=== PATIENT | female | born 1985 | race Caucasian/White ===

== ENCOUNTER 2016-11-14 00:05 | Inpatient (IN) | payer OTHER ==
[2016-11-14] MEDS ORDERED: OBEPIDURAL* 250 ML ONE (01:54)
[2016-11-14 01:59] LABS: Hematocrit 35 % (35-47); Hemoglobin 11.2 g/dl (12.0-16.0); Mean Corpuscular HGB Conc 32 g/dl (31-36); Mean Corpuscular Hemoglobin 25 pg (27-31); Mean Corpuscular Volume 78 fL (80-97); Mean Platelet Volume 10 um3 (7.4-10.4); Red Blood Count 4.55 10^6/ul (4.0-5.4); Red Cell Distribution Width 15 % (10.5-15)
[2016-11-14 02:02] LABS: Add Diff/Slide Review? Slide Review Added; Comments Flag Yes
[2016-11-14] MEDS ORDERED: Oxytocin in LR* 20 UNITS/1,000 ML BAG IVPB ONE (04:08)
[2016-11-14] MEDS ORDERED: Oxytocin in LR* 20 UNITS/1,000 ML BAG IVPB SCH ×2 (05:00→08:23)
[2016-11-14] MEDS ORDERED: EPHEDrine (Pressors)* 50 MG/ML VIAL IV PUSH PRN ×2 (07:26)
[2016-11-14] MEDS ORDERED: Phenylephrine IV* 40 MCG/ML 10 ML SYRINGE IV PUSH PRN ×2 (07:26)
[2016-11-14] MEDS ORDERED: Famotidine TAB* 20 MG PO PRN (07:26)
[2016-11-14] MEDS ORDERED: Sodium Citrate/Citric Acid* 15 ML UDC PO PRN (07:26)
[2016-11-14] MEDS ORDERED: OBEPIDURAL* 250 ML EPIDURAL SCH (08:00)
[2016-11-14] MEDS ORDERED: oxyCODONE/Acetamin 5/325 MG* TAB PO PRN (08:21)
[2016-11-14] MEDS ORDERED: Acetaminophen TAB* 325 MG PO PRN (08:21)
[2016-11-14] MEDS ORDERED: Glycerin ADULT SUPP PR PRN (08:21)
[2016-11-14] MEDS ORDERED: Dibucaine 1% 28.35 GM TUBE PR PRN (08:21)
[2016-11-14] MEDS: Docusate CAP* 100 MG PO SCH ×3 (10:03→20:16)
[2016-11-14] MEDS: Ibuprofen TAB* 600 MG PO PRN ×3 (10:03→22:58)
[2016-11-14] MEDS: Witch Hazel PAD* JAR TOPICAL PRN (10:08)
[2016-11-15] MEDS: Ibuprofen TAB* 600 MG PO PRN ×3 (06:21→20:25)
[2016-11-15 06:43] LABS: Hematocrit 28 % (35-47); Hemoglobin 9.2 g/dl (12.0-16.0); Mean Corpuscular HGB Conc 33 g/dl (31-36); Mean Corpuscular Hemoglobin 25 pg (27-31); Mean Corpuscular Volume 78 fL (80-97); Mean Platelet Volume 10 um3 (7.4-10.4); Red Blood Count 3.63 10^6/ul (4.0-5.4); Red Cell Distribution Width 15 % (10.5-15); White Blood Count 10.7 10^3/ul (3.5-10.8)
[2016-11-15] MEDS: Ferrous Gluconate TAB* 324 MG TAB PO SCH ×2 (08:35→20:25)
[2016-11-15] MEDS: Docusate CAP* 100 MG PO SCH ×3 (08:35→20:25)
[2016-11-16] MEDS: Ibuprofen TAB* 600 MG PO PRN ×2 (03:50→09:51)
[2016-11-16 08:13] VITALS: BP 114/74
[2016-11-16] MEDS ORDERED: Measles, Mumps,Rubella VACC* 0.5 ML/VIAL SUBCUT ONE (09:00)
[2016-11-16] MEDS: Docusate CAP* 100 MG PO SCH (09:51)
[2016-11-16] MEDS: Ferrous Gluconate TAB* 324 MG TAB PO SCH (09:51)
[2016-11-16] MEDS: Witch Hazel PAD* JAR TOPICAL PRN (11:48)
== END 2016-11-16 12:57 | disposition home or self-care (01) | DRG 775 ==
LOC: MCHOBOUT 00:05 → MCHOB 00:39
PROVIDERS: ADMIT Midwife; ATTEND Midwife
PROC: 10E0XZZ Delivery of Products of Conception, External Approach (ICD-10-PCS; principal; 2016-11-14)
PROC: 0KQM0ZZ Repair Perineum Muscle, Open Approach (ICD-10-PCS; 2016-11-14)
DX: O48.0 Post-term pregnancy (principal); D64.9 Anemia, unspecified; O70.1 Second degree perineal laceration during delivery; O77.0 Labor and delivery complicated by meconium in amniotic fluid; O90.81 Anemia of the puerperium; Z3A.40 40 weeks gestation of pregnancy; Z37.0 Single live birth
CPT/HCPCS: 36415; 85025; 85027; 86850; 86900; 86901; 90707; A9270-GY

== ENCOUNTER 2018-06-25 11:17 | Inpatient (IN) | payer OTHER ==
[2018-06-25] MEDS ORDERED: Oxytocin in LR* 20 UNITS/1,000 ML BAG IVPB ONE (11:41)
--- NOTE | 2018-06-25 11:43 | HP ---
General Information - Reason for Visit postdate for induction - General Information Maternal Age: 32 Grav: 1 Para: 0 SAB: 0 IEA: 0 Estimated Due Date: 06/17/18 Determined By: LMP Gestational Age in Weeks/Days: 41w 1d Maternal Blood Type and Rh: O Positive - Results this Serology/RPR Result: Non-Reactive Rubella Result: Immune HBsAg Result: Negative HIV Result: Negative GBS Culture Result: Negative Past Medical History Delivery History: Hx Uncomplicated Vaginal Delivery Pertinent Past Medical History: Non-Contributory Past Surgical History Comment: Cone biopsy 07/2006 Pertinent Family History: See Records - Antepartal Records Antepartal Records: Reviewed, Uncomplicated Review of Systems Constitutional: Comfortable CV Complaint: No Respiratory: Shortness of Breath: No Gastrointestinal: No Nausea/Vomiting, Normal Bowel Movement Genitourinary: No Leaking Fluid Musculoskeletal: No Complaint Neurological: Headache Movement: Normal Exam Allergies/Adverse Reactions: Allergies No Known Allergies Allergy (Verified 11/14/16 01:13) - Measurements Height: 5 ft 4 in Weight: 159 lb Weight in lbs: 159.452006 Body Mass Index (BMI): 27.3 Pre- Weight: 128 lb Weight Gained This : 31 lbs and 0 ozs - Exam Breast: - - soft, no masses Extremities: No Edema Heart: Normal Rhythm/Heart Sounds HEENT: No Significant Findings Lungs: Clear Bilaterally Reflexes: DTR 2+ Thyroid: No Thyromegaly - Ultrasound/Biophysical Profile Ultrasound Status: Not Done Targeted Exam Findings Estimated Weight: 7.5 lbs Cervical Exam: 1cm Effacement: 70% Station: -2 Presenting Part: Vertex Membrane Status: Intact EFM Findings - External Monitor Findings Baseline Heart Rate: 130 External Monitor Findings: Accelerations Present, No Pattern of Variable or Late Decelerations, Variability Moderate, Baseline Stable External Monitor Findings Comment: category 1 Contractions: Irregular Assessment/Plan - Assessment at 41w 1 day for induction - Plan Plan: Admit - Anticipate Vaginal Delivery - Date/Time of Admission Date of Admission: 06/25/18 Time of Admission: 11:30
[2018-06-25] MEDS ORDERED: Oxytocin in LR* 20 UNITS/1,000 ML BAG IVPB SCH (12:00)
[2018-06-25 12:05] LABS: ABS Basophils 0 10^3/ul (0-0.2); ABS Eosinophils 0.1 10^3/ul (0-0.6); ABS Lymphocytes 1.4 10^3/ul (1.0-4.8); ABS Monocytes 0.5 10^3/ul (0-0.8); ABS Neutrophils 5.1 10^3/ul (1.5-7.7); ABS Nucleated RBC 0 10^3/ul; Eosinophil % 1.1 % (0-6); Hematocrit 34 % (35-47); Hemoglobin 11.1 g/dl (12.0-16.0); Lymphocyte % 19.6 % (25-47); Mean Corpuscular HGB Conc 33 g/dl (31-36); Mean Corpuscular Hemoglobin 25 pg (27-31); Mean Corpuscular Volume 77 fL (80-97); Mean Platelet Volume 9.4 fL (7.4-10.4); Nucleated Red Blood Cells % 0.1; Platelet Count 252 10^3/ul (150-450); Red Blood Count 4.35 10^6/ul (4.00-5.40); Red Cell Distribution Width 15 % (10.5-15); White Blood Count 7.1 10^3/ul (3.5-10.8)
[2018-06-25] MEDS ORDERED: OBEPIDURAL* 250 ML EPIDURAL ONE (19:24)
--- NOTE | 2018-06-25 21:05 | PN ---
Progress Note - Progress Note Date of Service: 06/25/18 Note: comfortable after epidural. Cervix 5 cm/90%, vtx +1. Occasional variable decels.
[2018-06-26] MEDS ORDERED: Dibucaine 1% 28.35 GM TUBE PR PRN (00:18)
[2018-06-26] MEDS ORDERED: Glycerin ADULT SUPP PR PRN (00:18)
[2018-06-26] MEDS ORDERED: Witch Hazel PAD* JAR TOPICAL PRN (00:18)
[2018-06-26] MEDS ORDERED: Acetaminophen TAB* 325 MG PO PRN (00:18)
[2018-06-26] MEDS ORDERED: Oxytocin in LR* 20 UNITS/1,000 ML BAG IVPB SCH (00:21)
--- NOTE | 2018-06-26 00:32 | PROCNOTE ---
[facility] OB: Delivery Note - Delivery A Date of : 06/25/18 Time of : 23:56 Sex: Female Score 1 Minute: 9 Score 5 Minutes: 9 Gestational Age in Weeks and Days at Delivery: 41 Weeks and 1 Days Delivery Method: Spontaneous Vaginal Labor: Induced Amniotic Fluid: Clear Estimated Blood Loss: 100 Anesthesia/Analgesia: CEI for Labor Anesthesia Comment: Dr. Grimaldo - Nursery Level of Nursery: Regular/Bedside - Perineum Perineal Injury: Periurethral Laceration Perineal Injury Comment: 1 stitch repair Perineal Repair: By Delivering Practioner - Events Delivery Events of Note: Pitocin During Labor - Additional Delivery Notes Additional Delivery Notes: SVB LFC, OA, over intact perineum. Infant pink with stimulation. Placenta Corina. Fundus firm, IV with pitocin running. Small periurethral laceration, 1 stitch hemostatic repair with 4-0 Rapide. EBL 100cc. Mother and baby in good condition.
[2018-06-26] MEDS: Ibuprofen TAB* 600 MG PO PRN ×3 (08:24→21:48)
[2018-06-26] MEDS: Docusate CAP* 100 MG PO SCH ×3 (08:25→20:28)
[2018-06-27 06:37] LABS: Hematocrit 29 % (35-47); Hemoglobin 9.5 g/dl (12.0-16.0); Mean Corpuscular HGB Conc 33 g/dl (31-36); Mean Corpuscular Hemoglobin 25 pg (27-31); Mean Corpuscular Volume 77 fL (80-97); Mean Platelet Volume 9.1 fL (7.4-10.4); Platelet Count 197 10^3/ul (150-450); Red Blood Count 3.76 10^6/ul (4.00-5.40); Red Cell Distribution Width 16 % (10.5-15); White Blood Count 9.2 10^3/ul (3.5-10.8)
[2018-06-27 07:48] VITALS: BP 108/62
[2018-06-27] MEDS ORDERED: Ferrous Gluconate TAB* 324 MG TAB PO SCH (09:00)
[2018-06-27] MEDS: Docusate CAP* 100 MG PO SCH ×2 (09:23→15:29)
== END 2018-06-27 15:55 | disposition home or self-care (01) | DRG 807 ==
LOC: MCHOBOUT 11:17 → MCHOB 11:40
PROVIDERS: ADMIT Midwife; ATTEND Midwife
PROC: 10E0XZZ Delivery of Products of Conception, External Approach (ICD-10-PCS; principal; 2018-06-25)
PROC: 3E033VJ Introduction of Other Hormone into Peripheral Vein, Percutaneous Approach (ICD-10-PCS; 2018-06-25)
PROC: 10907ZC Drainage of Amniotic Fluid, Therapeutic from Products of Conception, Via Natural or Artificial Opening (ICD-10-PCS; 2018-06-25)
PROC: 0HQ9XZZ Repair Perineum Skin, External Approach (ICD-10-PCS; 2018-06-25)
DX: O48.0 Post-term pregnancy (principal); Z37.0 Single live birth; O71.82 Other specified trauma to perineum and vulva; O90.81 Anemia of the puerperium; D64.9 Anemia, unspecified; Z3A.41 41 weeks gestation of pregnancy
CPT/HCPCS: 36415; 85025; 85027; 86850; 86900; 86901; A9270-GY

== ENCOUNTER 2019-08-21 13:31 | Emergency (ER) | payer OTHER ==
--- NOTE | 2019-08-21 13:52 | ED ---
Lower Extremity - HPI Summary HPI Summary: This pt is a 33 y/o female [facility] c/o splinter in her right foot today. Pt reports she was wearing socks and chasing her daughter when she got a splinter in her right foot from her wooden floor. She denies any other injuries or complaints. Pt states she tried to remove the splinter with pliers but only removed part of it that was sticking out. Pt notes she still has part of the splinter in her right foot. She currently notes pain to her right foot and numbness to right toes. She states her last tetanus shot was when she was first 3 years ago. No PMHx. NKDA. - History of Current Complaint Chief Complaint: EDExtremityLower Stated Complaint: WOOD SPLINTER IN RT FOOT Time Seen by Provider: 08/21/19 13:37 Hx Obtained From: Patient Hx Last Menstrual Period: February 11 Mechanism Of Injury: Other - splinter in right foot Onset of Pain: Immediate Severity Currently: Moderate Pain Intensity: 4 Pain Scale Used: 0-10 Numeric Timing: Lasting Hours Location: Is Discrete @ - right foot Character Of Pain: Sharp Associated Signs And Symptoms: Positive: Negative Aggravating Factor(s): Nothing Alleviating Factor(s): Nothing - Allergies/Home Medications Allergies/Adverse Reactions: Allergies Allergy/AdvReac Type Severity Reaction Status Date / Time No Known Allergies Allergy Verified 08/21/19 13:36 Home Medications: Home Medications NK [No Home Medications Reported] 08/21/19 [History Confirmed 08/21/19] PMH/Surg Hx/FS Hx/Imm Hx Endocrine/Hematology History: Denies: Hx Diabetes Cardiovascular History: Denies: Hx Hypertension - Surgical History Surgical History: Yes Surgery Procedure, Year, and Place: [place] teeth extraction Infectious Disease History: No Infectious Disease History: Denies: Traveled Outside the [place] in Last 30 Days - Family History Known Family History: Positive: Hypertension Family History: Skin CA. - Social History Alcohol Use: None Substance Use Type: Reports: None Smoking Status (MU): Never Smoked Tobacco Have You Smoked in the Last Year: No Review of Systems Negative: Fever, Chills Cardiovascular: Negative Respiratory: Negative Gastrointestinal: Negative Skin: Other - POSITIVE: piece of wood in right foot Positive: Numbness - right toes All Other Systems Reviewed And Are Negative: Yes Physical Exam - Summary Physical Exam Summary: Constitutional: Well-developed, Well-nourished, Alert. (-) Distressed Skin: Warm, Dry. Large piece of splinter in the ball of the right foot. HENT: Normocephalic; Atraumatic Eyes: Conjunctiva normal Neck: Musculoskeletal ROM normal neck. (-) JVD, (-) Stridor, (-) Tracheal deviation Cardio: Rhythm regular, rate normal, Heart sounds normal; Intact distal pulses; The pedal pulses are 2+ and symmetric. Radial pulses are 2+ and symmetric. (-) Murmur Pulmonary/Chest wall: Effort normal. (-) Respiratory distress, (-) Wheezes, (-) Rales Abd: Soft, (-) tenderness, (-) Distension, (-) Guarding, (-) Rebound Musculoskeletal: (-) Edema Lymph: (-) Cervical adenopathy Neuro: Alert, Oriented x3 Psych: Mood and affect Normal Triage Information Reviewed: Yes Vital Signs On Initial Exam: Initial Vitals Temp Pulse Resp BP Pulse Ox 98.9 F 83 16 113/70 100 08/21/19 13:33 08/21/19 13:33 08/21/19 13:33 08/21/19 13:33 08/21/19 13:33 Vital Signs Reviewed: Yes Procedures - Procedure Summary Procedure Summary: Removal of Foreign Body Procedure Note 2 cc of 1% lidocaine injected at splinter Removed 1 cm piece of wood Patient tolerated the procedure well. - Sedation Patient Received Moderate/Deep Sedation with Procedure: No Diagnostics - Vital Signs Vital Signs Temp Pulse Resp BP Pulse Ox 08/21/19 13:33 98.9 F 83 16 113/70 100 - Laboratory Lab Statement: Any lab studies that have been ordered have been reviewed, and results considered in the medical decision making process. Lower Extremity Course/Dx - Course Course Of Treatment: Patient is here with a splinter in her foot. Patient Monster Clio a small splinter in her foot. Patient had local lidocaine injected and then the splinter removed. Patient does not need prophylactic antibiotics as this occurred while she was not wearing shoes. Patient is up-to- date on tetanus. - Diagnoses Provider Diagnoses: Foreign body in right foot Discharge ED - Sign-Out/Discharge Documenting (check all that apply): Patient Departure - Discharge home - Discharge Plan Condition: Stable Disposition: HOME Patient Education Materials: Soft Tissue Foreign Body (ED) Referrals: [facility] [Outside] Additional Instructions: Keep your wound clean and dry. Take Motrin and Tylenol for the pain. PLEASE RETURN TO EMERGENCY DEPARTMENT FOR WORSENING REDNESS, WARMTH, OR PUS COMING OUT. Please follow up with your primary care physician in 1-3 days. - Billing Disposition and Condition Condition: STABLE Disposition: Home - Attestation Statements Document Initiated by Scribe: Yes Documenting Scribe: Lynnette Corbin Provider For Whom Scribe is Documenting (Include Credential): Stephan Davis MD Scribe Attestation: Lynnette Garcia, scribed for Stephan Davis MD on 08/21/19 at 1716. Scribe Documentation Reviewed: Yes Provider Attestation: The documentation as recorded by the Lynnette wade accurately reflects the service I personally performed and the decisions made by Stephan tan MD Status of Scribe Document: Viewed
[2019-08-21 14:26] VITALS: BP 103/66
== END 2019-08-21 14:27 | disposition home or self-care (01) ==
LOC: ED 13:31
DX: S90.851A Superficial foreign body, right foot, initial encounter (principal); W45.8XXA Other foreign body or object entering through skin, initial encounter; Y92.009 Unspecified place in unspecified non-institutional (private) residence as the place of occurrence of the external cause
CPT/HCPCS: 99282

== ENCOUNTER 2021-01-31 10:13 | Inpatient (IN) ==
[2021-01-31] MEDS ORDERED: Lactated Ringers 1000 ml BAG 1,000 ML IV ONE ×2 (11:20→21:27)
[2021-01-31] MEDS ORDERED: Buffered Lidocaine 1% SYRIN 1 ml INTRADERM ONE (11:20)
[2021-01-31 11:56] LABS: ABS Eosinophils 0.1 10^3/ul (0-0.6); ABS Lymphocytes 1.4 10^3/ul (1.0-4.8); ABS Monocytes 0.5 10^3/ul (0-0.8); ABS Neutrophils 5.8 10^3/ul (1.5-7.7); Eosinophil % 0.9 %; Hematocrit 35 % (35-47); Hemoglobin 11.3 g/dL (12.0-16.0); Lymphocyte % 17.4 %; Mean Corpuscular HGB Conc 32 g/dL (31-36); Mean Corpuscular Hemoglobin 26 pg (27-31); Mean Corpuscular Volume 79 fL (80-97); Mean Platelet Volume 9.3 fL (7.4-10.4); Platelet Count 233 10^3/uL (150-450); Red Blood Count 4.42 10^6 /uL (3.70-4.87); Red Cell Distribution Width 15 % (10-15); White Blood Count 7.8 10^3/uL (3.5-10.8)
[2021-01-31] MEDS ORDERED: Lactated Ringers 1000 ml BAG 1,000 ML IV SCH ×2 (12:00→22:00)
[2021-01-31 12:17] LABS: Urine Benzodiazepine Screen None Detected (None Detect); Urine Cannabinoids Screen None Detected (None Detect); Urine Opiates Screen None Detected (None Detect)
[2021-01-31] MEDS ORDERED: Oxytocin in LR 20 UNITS/1,000 ML BAG IVPB SCH ×2 (13:00→23:00)
[2021-01-31] MEDS ORDERED: OBEPIDURAL 250 ML EPIDURAL ONE (20:05)
[2021-01-31] MEDS ORDERED: EPHEDrine (Pressors) 50 MG/ML VIAL IV PUSH PRN ×2 (21:27)
[2021-01-31] MEDS ORDERED: Phenylephrine 40 mcg/mL 10mL (400mcg) SYRINGE IV PUSH PRN ×2 (21:27)
[2021-01-31] MEDS ORDERED: Lactated Ringers 1000 ml BAG 500 ML IV PRN ×2 (21:27)
[2021-01-31] MEDS ORDERED: Sodium Citrate/Citric Acid LIQ 15 ML UDC PO PRN (21:27)
[2021-01-31 21:51] LABS: Urine Appearance Cloudy; Urine Bilirubin Negative (Negative); Urine Blood 2+ (Negative); Urine Color Yellow; Urine Glucose Negative (Negative); Urine Ketones Negative (Negative); Urine Nitrite Negative (Negative); Urine Protein Negative (Negative); Urine Specific Gravity 1.017 (1.002-1.030); Urine Urobilinogen Negative (Negative)
[2021-01-31] MEDS ORDERED: OBEPIDURAL 250 ML EPIDURAL SCH (22:00)
[2021-01-31] MEDS ORDERED: Witch Hazel PAD JAR TOPICAL PRN (22:23)
[2021-01-31] MEDS ORDERED: Dibucaine 1% OINT 28.35 GM TUBE PR PRN (22:23)
[2021-01-31] MEDS ORDERED: Glycerin ADULT 2.4 gm SUPP PR PRN (22:23)
[2021-01-31 22:27] LABS: Urine Bacteria 1+ (Absent); Urine Red Blood Cell 3+(>10/hpf) (Absent); Urine Squamous Epithelial Cell Present (Absent); Urine White Blood Cell Trace(0-5/hpf) (Absent)
[2021-02-01] MEDS ORDERED: Ammonia Inhalant 1 EA AMP ONE (00:18)
[2021-02-01 08:46] LABS: ABS Eosinophils 0.1 10^3/ul (0-0.6); ABS Lymphocytes 1.3 10^3/ul (1.0-4.8); ABS Monocytes 0.6 10^3/ul (0-0.8); ABS Neutrophils 6.7 10^3/ul (1.5-7.7); Eosinophil % 0.8 %; Hematocrit 34 % (35-47); Lymphocyte % 15.1 %; Mean Corpuscular HGB Conc 33 g/dL (31-36); Mean Corpuscular Hemoglobin 26 pg (27-31); Mean Corpuscular Volume 79 fL (80-97); Mean Platelet Volume 9.2 fL (7.4-10.4); Platelet Count 207 10^3/uL (150-450); Red Blood Count 4.29 10^6 /uL (3.70-4.87); Red Cell Distribution Width 15 % (10-15); White Blood Count 8.7 10^3/uL (3.5-10.8)
[2021-02-02 08:00] VITALS: BP 112/68
== END 2021-02-02 11:38 | disposition home or self-care (01) ==
LOC: MCHOBOUT 10:13 → MCHOB 11:16
PROVIDERS: ADMIT Midwife; ATTEND Midwife